=== PATIENT | male | born 1985 | race African-American/Black ===

== ENCOUNTER 2017-08-24 20:22 | Emergency (ER) | payer OTHER ==
[~2017-08-24] VITALS: Ht 167.6 cm; Wt 125.7 kg
[~2017-08-24 20:22] MED LIST: PROC30SU PR; STOO100C PO
[2017-08-24 20:25] VITALS: BP 140/76; PULSE 91; RESP 16; TEMP 98.3; O2SAT 96
--- NOTE | 2017-08-24 21:45 | PD ---
HPI Chief Complaint: Edema Time Seen by Provider: 20:35 Travel History International Travel<30 days: No Contact w/Intl Traveler<30days: No Traveled to known affect area: No History of Present Illness HPI This patient complains of a inflamed area on his left lower leg. Duration 2 days. Symptom severity is mild. He says that he squeezes it and it released some pus. Seemed to improve after that. No fever. No injury. PFSH Past Medical History Medical History: Denies Significant Hx Diminished Hearing: No Influenza Vaccination: No Past Surgical History Surgical History: No Previous Surgery Social History Alcohol Use: No Tobacco Use: Yes (03/12 PPD) Substance Use: No Allergies-Medications (Allergen,Severity, Reaction): Coded Allergies: No Known Allergies (Verified Adverse Reaction, Unknown, 08/24/17) Reported Meds & Prescriptions Reported Meds & Active Scripts Active Review of Systems General / Constitutional: No: Fever HENT: No: Headaches Cardiovascular: No: Chest Pain or Discomfort Physical Exam Narrative Left leg: There is a very small hyperpigmented circular area on the left lower leg which is the area in question. Is not tender. There is no erythema or warmth. No fluctuance or drainage. SKIN: Focused skin assessment reveals no rash or ulcers. Skin is warm and dry. Palpation shows no induration or nodules. Psych: Normal mood and affect. Normal insight and judgment. Data Data Last Documented VS Vital Signs Date Time Temp Pulse Resp B/P (MAP) Pulse Ox O2 Delivery O2 Flow Rate FiO2 08/24/17 20:45 18 99 Room Air 08/24/17 20:25 98.3 91 140/76 (97) MDM Medical Decision Making Medical Screen Exam Complete: Yes Emergency Medical Condition: Yes Medical Record Reviewed: Yes Differential Diagnosis Infected lesion, abscess, boil Narrative Course I have reviewed the patient's electronic medical record. Sounds like patient had an infection but I do not see much evidence of that now. I do not think antibiotics are indicated. I think he will do fine with observation. Diagnosis Primary Impression: Leg skin lesion, left Additional Instructions: The patient was advised to follow up with their physician and return if they worsen. Med/Other Pt SpecificInfo: Other Disposition: 01 DISCHARGE HOME Condition: Stable Rob Wayne MD Aug 24, 2017 21:45
[2017-08-24 21:59] VITALS: BP 165/82
== END 2017-08-24 22:12 | disposition home or self-care (01) ==
LOC: PHED 20:22
DX: L08.9 Local infection of the skin and subcutaneous tissue, unspecified (principal); F17.200 Nicotine dependence, unspecified, uncomplicated
CPT/HCPCS: 99282